=== PATIENT | female | born 1985 | race Caucasian/White ===

== ENCOUNTER 2023-06-11 09:57 | Observation (INO) ==
[2023-06-11 10:43] LABS: Hematocrit 40.3 % (35-45); Hemoglobin 14.1 g/dL (11.5-14.3); Mean Corpuscular Hemoglobin 32.3 pg (27-33); Mean Corpuscular Volume 92.2 fL (80-97); Mean Platelet Volume 9.1 fL (7.5-11.2); Platelet Count 202 10^3/uL (150-450); Red Blood Count 4.38 10^6/uL (3.63-4.92); Red Cell Distribution Width 12.5 % (12-17); White Blood Count 6.5 10^3/uL (3.8-11.8)
[2023-06-11] MEDS ORDERED: Ondansetron 4 mg VIAL 2 MG/ML 2 ml VIAL ONE (11:01)
[2023-06-11] MEDS ORDERED: Scopolamine 1 mg/72hr PATCH ONE (11:01)
[2023-06-11] MEDS ORDERED: oxyCODONE SR 10 mg TAB ONE (11:01)
[2023-06-11] MEDS ORDERED: Naloxone 0.4 mg VIAL 0.4 mg/ml 1 ml VIAL IV PUSH PRN ×2 (11:02→12:11)
[2023-06-11 11:08] LABS: Anion Gap 8 mmol/L (2-16); Blood Urea Nitrogen 8 mg/dL (6-24); CO2 Carbon Dioxide 26 mmol/L (22-32); Calcium 8.9 mg/dL (8.6-10.3); Chloride 105 mmol/L (101-111); Creatinine, Serum 0.74 mg/dL (0.51-0.95); Glucose 96 mg/dL (70-100); HCG Pregnancy < 0.60 mIU/mL; Potassium 3.8 mmol/L (3.5-5.0); Sodium 139 mmol/L (135-145); eGFR CKD-EPI 104.8 (>60)
[2023-06-11 11:10] LABS: Activated Partial Thrombo Time 33.9 seconds (26.0-38.0); INR 1.03 (0.83-1.13)
[2023-06-11] MEDS: Clindamycin 300 MG/D5W BAG 300 MG/50 ML BAG IV SCH (11:45)
[2023-06-11] MEDS ORDERED: Dexamethasone Oral Solution 1 MG/ML 10 ML UDC (10 MG) PO ONE (12:00)
[2023-06-11] MEDS ORDERED: HYDROmorphone PCA 20 MG/20 ML PCA.SYRING PCA SCH (12:00)
[2023-06-11] MEDS ORDERED: Iohexol 350 (CONTRAST) 100 ML PAK IV ONE (12:02)
[2023-06-11] MEDS ORDERED: Midazolam 5 mg/5 ml VIAL 1 mg/ml 5 ml VIAL (5 mg) ONE (12:02)
[2023-06-11] MEDS ORDERED: Lidocaine 1% VIAL 10 MG/ML 30 ML VIAL ONE (12:02)
[2023-06-11] MEDS ORDERED: fentaNYL 100 mcg/2 ml 50 MCG/ML VIAL ONE (12:02)
[2023-06-11] MEDS ORDERED: Heparin 2 UNITS/ML IVPREMIX 3,000 UNIT/1,500 ML BAG IV ONE (12:03)
[2023-06-11] MEDS ORDERED: Flumazenil 0.5 mg/5 ml 0.1 MG/ML 5 ml VIAL IV PRN (12:11)
[2023-06-11] MEDS ORDERED: Midazolam 10 mg/10 ml VIAL 1 mg/ml 10 ml VIAL (10 mg) IV SLOW PU ONE (12:11)
[2023-06-11] MEDS ORDERED: fentaNYL 100 mcg/2 ml 50 MCG/ML VIAL IV SLOW PU ONE (12:11)
[2023-06-11] MEDS ORDERED: nitroGLYCERIN DRIP 25,000 MCG/250 ML BTL ONE (12:40)
[2023-06-11] MEDS ORDERED: HYDROmorphone 0.5 MG/0.5 ML SYRINGE ONE ×2 (13:14→13:24)
[2023-06-11] MEDS ORDERED: Atropine 0.1 MG/ML 10 ml SYR (1 mg) ONE (13:59)
[2023-06-11] MEDS ORDERED: Phenylephrine 40 mcg/mL 10mL (400mcg) SYRINGE ONE (14:06)
[2023-06-11] MEDS ORDERED: Phenylephrine 40 mcg/mL 10mL (400mcg) SYRINGE IV PUSH ONE ×2 (14:12→14:32)
[2023-06-11] MEDS ORDERED: NS 0.9% 1,000 ML IV ONE (15:30)
[2023-06-11] MEDS ORDERED: UBROGEPANT 100 MG PO PRN (16:27)
[2023-06-11] MEDS ORDERED: NS 0.9% 1000 ml BAG 1,000 ML IV SCH (16:30)
[2023-06-11] MEDS: Ondansetron 4 mg VIAL 2 MG/ML 2 ml VIAL IV SCH (18:46)
[2023-06-11] MEDS ORDERED: PTO: Norethindrone 0.35 mg TAB (NF) PO SCH (21:00)
[2023-06-12] MEDS: Ondansetron 4 mg VIAL 2 MG/ML 2 ml VIAL IV SCH ×2 (00:39→06:27)
[2023-06-12 06:07] LABS: ABS Lymphocytes 1.8 10^3/uL (1.0-4.8); ABS Monocytes 0.9 10^3/uL (0.0-0.9); ABS Neutrophils 6.9 10^3/uL (1.5-7.6); ABS Nucleated RBC 0.01 10^3/ul; Hematocrit 34.6 % (35-45); Hemoglobin 12.1 g/dL (11.5-14.3); Lymphocyte % 18.4 %; Mean Corpuscular Hemoglobin 32.4 pg (27-33); Mean Corpuscular Hgb Conc 34.9 g/dL (31-36); Mean Corpuscular Volume 92.8 fL (80-97); Mean Platelet Volume 9.7 fL (7.5-11.2); Nucleated Red Blood Cells % 0.1 /100 WBC (0.0-0.4); Platelet Count 168 10^3/uL (150-450); Red Blood Count 3.73 10^6/uL (3.63-4.92); Red Cell Distribution Width 12.7 % (12-17); White Blood Count 9.5 10^3/uL (3.8-11.8)
[2023-06-12 06:23] LABS: Calcium 7.9 mg/dL (8.6-10.3); Creatinine, Serum 0.63 mg/dL (0.51-0.95); Potassium 4.2 mmol/L (3.5-5.0); eGFR CKD-EPI 114.9 (>60)
[2023-06-12] MEDS ORDERED: Dexamethasone Oral Solution 1 MG/ML 10 ML UDC (10 MG) PO ONE (07:00)
[2023-06-12] MEDS ORDERED: HYDROcodone/ACETAMIN 5/325 mg TAB PO PRN (08:33)
[2023-06-12] MEDS ORDERED: [UNRECOGNIZED DRUG - OTHER] PO SCH (09:00)
[2023-06-12] MEDS ORDERED: OMEGA PO SCH (09:00)
[2023-06-12] MEDS ORDERED: Ketorolac 10 mg TAB (NF) PO SCH (12:00)
== END 2023-06-12 11:37 | disposition home or self-care (01) ==
LOC: CHICATH 09:57 → SSU 09:57 → SUATTDRO 16:55
PROVIDERS: ADMIT Radiology Diagnostic Radiology; ATTEND Internal Medicine
PROC: ANG.UFE (2023-06-11 12:10)